=== PATIENT | female | born 1990 | race Caucasian/White ===

== ENCOUNTER 2016-09-15 13:48 | Emergency (ER) | payer MEDICAID ==
[2016-06-14 07:31] VITALS: BMI 18.7
[~2016-09-15 13:48] MED LIST: CIPRO500 MG PO; MOTRIN600 MG PO; PERCOCET 5/3251 TA1 PO
== END 2016-09-15 17:14 | disposition home or self-care (01) ==
LOC: D.ER 13:48
DX: K08.89 Other specified disorders of teeth and supporting structures (principal); S02.5XXA Fracture of tooth (traumatic), initial encounter for closed fracture; Y04.2XXA Assault by strike against or bumped into by another person, initial encounter; Y93.89 Activity, other specified; Y92.89 Other specified places as the place of occurrence of the external cause; T14.8 Other injury of unspecified body region

== ENCOUNTER 2019-03-09 17:56 | Emergency (ER) | payer MEDICAID ==
[~2019-03-09] VITALS: Ht 157.5 cm; Wt 49.1 kg
[2019-03-09 18:03] VITALS: Ht 157.5 cm; Wt 49.1 kg
[2019-03-09] MEDS ORDERED: CYPROHEPTAD2 MG/5 ML PO (18:05)
[2019-03-09 18:50] LABS: APPEARANCE TURBID (CLEAR); BILIRUBIN NEGATIVE (NEGATIVE); COLOR BROWN (YELLOW); GLUCOSE NEGATIVE (NEGATIVE); KETONE NEGATIVE (NEGATIVE); NITRITE NEGATIVE (NEGATIVE); PROTEIN 2+ mg/dL (NEGATIVE); UROBILINOGEN NORMAL (NORMAL); WHITE CELLS - URINE 25-50 /hpf (0-5)
[2019-03-09 18:51] LABS: BACTERIA FEW /hpf (NONE SEEN); EPITHELIAL CELLS 0-5 /hpf (0-5); RED CELLS - URINE >50 /hpf (0-5)
[2019-03-09 18:56] LABS: ALBUMIN 3.9 g/dL (3.4-5.0); ALKALINE PHOSPHATASE 60 U/L (46-116); ALT (SGPT) 10 U/L (10-68); AMYLASE - SERUM 70 U/L (25-115); BILIRUBIN - TOTAL 0.47 mg/dL (0.2-1.3); CALC OSMOLALITY 283 mosm/kg (275-300); CALCIUM 8.5 mg/dL (8.5-10.1); CARBON DIOXIDE 29.4 mmol/L (21.0-32.0); CHLORIDE - SERUM 107 mmol/L (98-107); CREATININE - SERUM 0.8 mg/dL (0.6-1.3); GLUCOSE 90 mg/dL (74-106); LIPASE 175 U/L (73-393); POTASSIUM - SERUM 4.4 mmol/L (3.5-5.1); PROTEIN - SERUM 7.2 g/dL (6.4-8.2); SODIUM 143 mmol/L (136-145); UREA NITROGEN 11 mg/dL (7-18); eGFR NON AFRICAN AMERICAN 89 mL/min (90-120)
[2019-03-09 19:22] LABS: BASOPHILS 0.2 % (0-2); EOSINOPHILS 1.1 % (0-7); HEMATOCRIT 41.5 % (36.0-48.0); HEMOGLOBIN 14.2 g/dL (12-16); IMMATURE GRANULOCYTES 0.3 % (0-5); LYMPHOCYTES 11.8 % (15-50); MCHC 34.2 g/dL (31.0-37.0); MCV 93.5 fL (80.0-100.0); MEAN PLATELET VOLUME 10.5 fL (7.4-10.4); MONOCYTES 5.5 % (2-11); NEUTROPHILS 81.1 % (40-80); PLATELET COUNT 254 10x3/uL (130-400); RBC 4.44 10x6/uL (4.00-5.40); RDW 12.7 % (11.5-14.5)
[2019-03-09] MEDS ORDERED: CIPRO500 MG PO (20:42)
[2019-03-09 20:51] VITALS: BP 137/73
== END 2019-03-09 20:52 | disposition home or self-care (01) ==
LOC: D.ER 17:56
PROVIDERS: Family Medicine
DX: N23 Unspecified renal colic (principal); R31.9 Hematuria, unspecified; N12 Tubulo-interstitial nephritis, not specified as acute or chronic

== ENCOUNTER 2020-10-02 18:40 | Emergency (ER) | payer SELFPAY ==
[~2020-10-02] VITALS: Ht 157.5 cm; Wt 52.3 kg
[~2020-10-02 18:40] MED LIST changes: +CYPROHEPTAD2 MG/5 ML PO
[2020-10-02 19:00] VITALS: Ht 157.5 cm; Wt 52.3 kg
[2020-10-02] MEDS ORDERED: GABAPENTIN100 MG PO (19:56)
[2020-10-02] MEDS ORDERED: ZOVIRAX800 MG PO (19:56)
[2020-10-02] MEDS ORDERED: LIDOCAINE50 GM TOPICAL (19:56)
[2020-10-02 20:18] VITALS: BP 136/78
== END 2020-10-02 20:19 | disposition home or self-care (01) ==
LOC: D.ER 18:40
DX: B02.9 Zoster without complications (principal)